=== PATIENT | male | born 1935 | race Caucasian/White ===

== ENCOUNTER 2016-05-14 13:02 | Inpatient (IN) | payer OTHER ==
--- NOTE | 2016-05-14 13:44 | PROVIDER DOCUMENTATION ---
HPI-Respiratory General - General Chief Complaint: Cold Symptoms Stated Complaint: cold Time Seen by Provider: 05/14/16 13:44 Source: patient, family, EMS Allergies/Adverse Reactions: Patient Allergies Allergy/AdvReac Type Severity Reaction Status Date / Time levofloxacin [From Levaquin] AdvReac Intermediate abdominal Verified 05/14/16 13 :11 cramps Home Medications: Home Medication List Medication Instructions Recorded Confirmed Last Taken Type Aspirin [Aspirin EC] 81 mg PO 08/19/12 01/25/13 1 Day Ago History Folic Acid 1 mg PO DAILY 08/19/12 01/25/13 1 Day Ago History Glyburide/Metformin HCl 1 tab PO BID 08/19/12 01/25/13 1 Day Ago History [Glucovance 2.5/500 mg Tablet] Metoprolol Succinate E.r. [Toprol 25 mg PO DAILY 08/19/12 01/25/13 1 Day Ago History Xl] Multivitamins/Minerals [Centrum 1 each PO DAILY 08/19/12 01/25/13 1 Day Ago History Silver] SIMVAstatin [Zocor] 10 mg PO QHS 08/19/12 01/25/13 1 Day Ago History Tamsulosin [Flomax] 0.4 mg PO DAILY 08/19/12 01/25/13 1 Day Ago History Omeprazole [Prilosec] 40 mg PO DAILY #30 capsule. 01/13/13 01/25/13 1 Day Ago Rx Oxycodone/APAP 5 mg/325 mg 1 each PO Q4H PRN PRN 01/25/13 01/25/13 1 Day Ago History [Percocet-5] Albuterol 2.5MG/Ipratrop 0.5MG 3 ml INH RTQ8H #0 neb 02/04/13 1 Week Ago Rx [Duoneb (A & A)] Infliximab [Remicade] 100 mg IV 05/14/16 1 Month Ago History Losartan/Hydrochlorothiazide 1 each PO DAILY 05/14/16 05/14/16 1 Day Ago History [Hyzaar 100/25 Tablet] Melatonin 3 mg PO QHS 05/14/16 05/14/16 1 Day Ago History Methotrexate 0.6 ml IM 05/14/16 1 Day Ago History Temazepam [Restoril] 30 mg PO DAILY 05/14/16 05/14/16 1 Day Ago History - History of Present Illness-Resp Nature of Presenting Problem: 81 yo M presents to the ER with complaint of cough, SOB, fever, and malaise x1 week, worsening last night. States he had pneumonia x1 month ago, was starting to get better but now getting worse. Denies CP or palpitations. Onset/Duration: reports: 1 week ago Cough Quality/Degree: reports: moderate Associated Symptoms: reports: cough, fever/chills, short of breath. denies: chest pain/soreness Review of Systems - Adult - REVIEW OF SYSTEMS - ADULT Constitutional: reports: chills, fever Eyes: reports: no symptoms reported Ears, Nose, Mouth & Throat: reports: no symptoms reported Cardiovascular: denies: chest pain, palpitations Respiratory: reports: cough, shortness of breath Gastrointestinal: denies: diarrhea, nausea, vomiting Genitourinary: reports: no symptoms reported Musculoskeletal: reports: no symptoms reported Integumentary: reports: no symptoms reported Neurological: reports: no symptoms reported Psychiatric: reports: no symptoms reported Endocrine: reports: no symptoms reported Hematologic/Lymphatic: reports: no symptoms reported Allergic/Immunologic: reports: no symptoms reported All Other Systems: Reviewed and Negative Past History - Adult - PAST MEDICAL HISTORY-ADULT Review of Records: reports: Nursing Assessment Review, Medications Reviewed Respiratory: reports: asthma Genitourinary: reports: prostate cancer Endocrine/Immune: reports: Diabetes - PRIOR SURGERIES/PROCEDURES Surgical/Procedure History: reports: cholecystectomy, tonsillectomy, hernia repair, joint replacement (knee) - IMMUNIZATION STATUS Childhood Immunizations: See Nurse Assessment Flu Vaccine: See Nurse Assessment Physical Exam-General - PHYSICAL EXAM-ADULT Initial Vital Signs Reviewed: Yes - CONSTITUTIONAL General Appearance: alert, no apparent distress - EYES Eyes: PERRL/EOMI, pink conjunctivae - HEAD, EARS, NOSE, MOUTH & THROAT HENMT: normocephalic/atraumatic, normal ENT inspection - NECK Neck: supple, normal inspection - RESPIRATORY Respiratory: lungs clear, no respiratory distress, no accessory muscle use - CARDIOVASCULAR Cardiovascular: no edema, no murmur, tachycardia - GASTROINTESTINAL (ABDOMEN) Abdominal Exam: normal bowel sounds, non tender, soft - MUSCULOSKELETAL Back Exam: no CVA tenderness, no vertebral tenderness Extremity: normal gait, normal inspection - SKIN Integumentary: normal color, warm/dry - NEUROLOGIC Neurologic: grossly normal, no motor/sensory deficits - PSYCHIATRIC Psych/Mental Status: normal mood/affect, normal thought content, normal thought process, oriented x 3 Progress - XRAY 1 XRAY Study: Chest Impression: Abnormal (RLL pneumonia) - CONSULTS/PCP/HOSPITALIST Notification #1 *Consult/PCP/Hospitalist*: Dr. Salians Time Discussed: 14:28 Consult Disposition: Admit Departure - Departure Time of Disposition Order: 14:41 DIAGNOSIS: Right lower lobe pneumonia Qualifiers: Pneumonia type: due to unspecified organism Qualified Code(s): J18.1 - Lobar pneumonia, unspecified organism Disposition: ADMITTED INPATIENT 09 Certified Medical Emergency: Emergent Condition: Stable Attestation - Scribe Verification/Attestation Scribe:: Diamante Valdez Acting as Scribe for:: Brady Adan Scribe documention review:: This chart was documented by a scribe and accurately reflects the service the provider performed and the decisions made by the provider.
[2016-05-14 14:13] LABS: HEMATOCRIT 34.7 % (42.0-52.0); HEMOGLOBIN 11.7 g/dL (14.0-18.0); IMM GRAN# 0.02 X1000 (0.0-0.04); IMM GRAN% 0.2 % (0.0-0.5); LYMPH# 0.49 X1000 (1.2-3.4); LYMPH% 4.4 % (20.5-51.1); MANUAL DIFF NEEDED? NO; MCH 31.5 PG (27-31); MCHC 33.7 g/dL (33-37); MCV 93.3 FL (81-99); MONO# 0.65 X1000 (0.11-0.59); MONO% 5.8 % (1.7-9.3); MPV 10.1 FL (7.4-10.4); NEUT% 89.6 % (42.2-75.2); PLT 145 X1000 (130-400); RBC 3.72 XMIL (4.7-6.1)
[2016-05-14 14:29] LABS: ALBUMIN 3.6 g/dL (3.5-5.0); CALCIUM 8.6 mg/dL (8.8-10.2); POTASSIUM 3.8 mmol/L (3.5-5.1); TOTAL BILIRUBIN 0.7 mg/dL (0.20-1.00); TOTAL PROTEIN 6.8 g/dL (6.3-8.3)
--- NOTE | 2016-05-14 14:30 | Diag Imaging Result Document ---
PROCEDURE NAME: CHEST-2 VIEWS - 05/14/2016 TWO VIEWS OF THE CHEST: FINDINGS: There is ill-defined alveolar opacity in the lateral inferior posterior right lower lobe. There is blunting of the costophrenic angles particularly the left. Compared to the previous study of 02/04/2013 despite the better inspiration, there is more alveolar opacity in the right lower lobe. IMPRESSION: Right lower lobe pneumonia.
[2016-05-14] MEDS: DUONEB (A & A) INH SCH ×2 (14:38→14:58)
[2016-05-14 14:44] LABS: BE 3.3 mmoll (-3.0-3.0); BLOOD TYPE ARTERIAL; DRAW SITE R BRACHIAL; METHB 1.2 % (0.0-1.5); O2(CT) 14.5 mL/dL (15.0-23.0); PCO2(98.6) 41 mmHg (35-45); PO2(98.6) 59 mmHg (60-100); SAMPLE BLOOD; SAO2 93.5 % (95.0-100.0); THB 11.5 g/dL (11.5-17.4); pH(98.6) 7.44 (7.35-7.45)
[2016-05-14] MEDS ORDERED: ROCEPHIN 500 MG in NS 50 ML IV SCH (14:45)
[2016-05-14 14:47] LABS: MODALITY ROOM AIR
[2016-05-14 14:48] LABS: ALLEN TEST NO
[2016-05-14] MEDS: ROCEPHIN 1 GM/NS 50 ML IV SCH (15:30)
[2016-05-14] MEDS: NS 1,000 ML IV SCH (15:47)
[2016-05-14] MEDS ORDERED: TYLENOL PO PRN (17:32)
[2016-05-14] MEDS ORDERED: ZOFRAN IV PRN (17:32)
[2016-05-14] MEDS: ZITHROMAX 500 MG/NS 250 ML IV SCH (18:24)
[2016-05-14] MEDS: DIABETA PO SCH (18:24)
[2016-05-14] MEDS: GLUCOPHAGE PO SCH (18:24)
[2016-05-14 18:36] LABS: URINE CULTURE PL NEEDED? NO; URINE SOURCE VOIDED
[2016-05-14 18:47] LABS: BILIRUBIN URINE NEGATIVE (NEGATIVE); BLOOD URINE NEGATIVE (NEGATIVE); COLOR AMBER; LEUKOCYTES URINE TRACE (NEGATIVE); NITRITE URINE NEGATIVE (NEGATIVE); PROTEIN URINE 1+(30 mg/dL) mg/dL (NEGATIVE); UROBILINOGEN URINE NORMAL
[2016-05-14 19:05] LABS: URINE EPITHELIAL CELLS <10 /HPF (<10); URINE RBC <10 /HPF (<10); URINE WBC <10 /HPF (<10)
[2016-05-14 19:06] LABS: CLARITY SLIGHTLY CLOUDY (CLEAR)
[2016-05-14] MEDS ORDERED: GLYBURIDE PO SCH (21:00)
[2016-05-14] MEDS ORDERED: METFORMIN HCL PO SCH (21:00)
[2016-05-14] MEDS: ZOCOR PO SCH (21:25)
[2016-05-14] MEDS: DUONEB (A & A) INH PRN (21:37)
[2016-05-15] MEDS: NS 1,000 ML IV SCH ×2 (03:00→04:10)
[2016-05-15] MEDS: DUONEB (A & A) INH PRN ×4 (03:25→21:14)
[2016-05-15] MEDS: PRILOSEC PO SCH (05:59)
[2016-05-15 06:01] LABS: HEMATOCRIT 31.7 % (42.0-52.0); HEMOGLOBIN 10.6 g/dL (14.0-18.0); MCH 31.6 PG (27-31); MCHC 33.4 g/dL (33-37); MCV 94.6 FL (81-99); MPV 10.4 FL (7.4-10.4); RBC 3.35 XMIL (4.7-6.1)
[2016-05-15 06:17] LABS: AGAP 14; ALBUMIN 3.2 g/dL (3.5-5.0); ALKALINE PHOSPHATASE 44 U/L (32-122); BUN 13 mg/dL (8-22); CHLORIDE 95 mmol/L (98-107); COSMO 270; GOT 11 U/L (10-34); GPT 9 U/L (10-44); POTASSIUM 3.4 mmol/L (3.5-5.1); SODIUM 133 mmol/L (136-145); TCO2 24 mmol/L (25-35); TOTAL PROTEIN 5.7 g/dL (6.3-8.3)
[2016-05-15] MEDS ORDERED: HYDROCHLOROTHIAZIDE PO SCH (09:00)
[2016-05-15] MEDS ORDERED: LOSARTAN PO SCH (09:00)
[2016-05-15] MEDS: TOPROL XL PO SCH (09:07)
[2016-05-15] MEDS: HYDROCHLOROTHIAZIDE PO SCH (09:07)
[2016-05-15] MEDS: DIABETA PO SCH ×2 (09:08→16:50)
[2016-05-15] MEDS: COZAAR PO SCH (09:08)
[2016-05-15] MEDS: FLOMAX PO SCH (09:08)
[2016-05-15] MEDS: GLUCOPHAGE PO SCH ×2 (09:08→16:50)
[2016-05-15] MEDS ORDERED: SALINE LOCK IV FLUID XX ONE (11:49)
--- NOTE | 2016-05-15 11:55 | PROGRESS NOTE ---
DATE: 05/15/2016 SUBJECTIVE: Patient states he thinks he is feeling a little bit better. He is having a little bit less cough, congestion this morning. Still has some shortness of breath. Has not been out of bed. Denies any fevers or chills. Denies any headaches, blurred vision, change in vision. OBJECTIVE: Vital signs: Temperature 98.5 degrees, pulse 90, respiratory 18, BP 146/58. General: Patient well developed, well nourished. Currently he is in no real respiratory distress. He is awake, alert. Neck: Supple. CV: Regular rate. Chest: Relatively clear. Better air movement than yesterday's exam. Abdomen: Soft. Extremities: Moves all extremities. Neurologic: No changes. LABS: Reviewed. CBC unchanged. CMP with improved sodium at 133. Improved glucose at 162. ASSESSMENT: 1. Right lower lobe pneumonia. 2. Leukocytosis. 3. Hyponatremia, improved. 4. Anemia of chronic disease. 5. Chronic obstructive pulmonary disease. 6. Diabetes. 7. Others. PLAN: We will continue patient on IV antibiotics today. Will continue to follow. Further orders as needed.
--- NOTE | 2016-05-15 15:02 | HISTORY AND PHYSICAL ---
CHIEF COMPLAINT: Cough. HISTORY OF PRESENT ILLNESS: The patent is an 81-year-old male, who presented to [facility] with cough, cold, and congestion. Notes he has had shortness of breath and fatigue for the past week that has been worsening over the past 2 days. He had pneumonia approximately a month ago. He has been off and on antibiotics, but has not seemed to help. PAST MEDICAL HISTORY: Asthma, chronic obstructive pulmonary disease, prostate cancer, diabetes. PAST SURGICAL HISTORY: History of cholecystectomy, tonsillectomy, hernia repair, joint replacement. FAMILY HISTORY: Noncontributory. SOCIAL HISTORY: Patient lives at home. Does not smoke or drink. MEDICATIONS: Melatonin 3 mg b.i.d., BRONWYN nebs q. 8 p.r.n., Remicade, methotrexate, Centrum Silver, Flomax 0.4, Toprol 50, aspirin 81, Zocor 10, Percocet p.r.n., Prilosec 20, Glucovance 2.5/500 one twice a day, Restoril 30, and Hyzaar 100/25. REVIEW OF SYSTEMS: Positive cough and congestion. Positive low-grade fevers and chills. States he has had a nonproductive cough. Denies any chest pain or palpitations. Denies any dysuria, frequency, urgency. Denies melena, constipation, hematochezia. Denies hemoptysis and hematemesis. OBJECTIVE: Vital signs: Reviewed. Temperature 98 degrees, pulse 110, respiratory rate 20, blood pressure 116/78, sat 90% on room air. General: Patient is an elderly male who is currently in mild respiratory distress. He is pleasant to talk with. Speech is regular. Memory appears intact. HEENT: Normocephalic. Neck: Supple. Cardiovascular: Regular rate. Chest: Relatively clear throughout. Positive rhonchi and faint crackles in the right lower. DIAGNOSTIC DATA: WBC is 11, hemoglobin and hematocrit 11 and 30. ABG with pH 7.4, pO2 of 59,000, oxyhemoglobin 89, carboxyhemoglobin 2.9. Sodium 125, glucose 264. ASSESSMENT: 1. Right lower lobe pneumonia. 2. Acute hypoxemia in a patient who is not normally on oxygen, likely secondary to his pneumonia. 3. Mild anemia of chronic disease. Hemoglobin and hematocrit 11 and 34. 4. Mild leukocytosis. 5. Fever. 6. Hyponatremia. 7. Known history of prostate cancer. 8. Diabetes. PLAN: We will admit patient to the hospital. IV fluids, antibiotics, breathing treatments, oxygen. Continue his home medications. Further orders as needed.
[2016-05-15] MEDS: ROCEPHIN 1 GM/NS 50 ML IV SCH (15:18)
[2016-05-15] MEDS: ZITHROMAX 500 MG/NS 250 ML IV SCH (15:52)
[2016-05-15] MEDS ORDERED: ROBITUSSIN PO ONE ×2 (20:37→21:15)
[2016-05-15] MEDS ORDERED: ROBITUSSIN ONE (20:45)
[2016-05-15] MEDS: ZOCOR PO SCH (20:49)
[2016-05-16] MEDS: DUONEB (A & A) INH PRN ×2 (03:19→08:49)
[2016-05-16] MEDS: PRILOSEC PO SCH ×2 (05:27→06:06)
[2016-05-16] MEDS ORDERED: ZITHROMAX 500 MG/NS 250 ML IV SCH (07:48)
--- NOTE | 2016-05-16 08:20 | Diag Imaging Result Document ---
PROCEDURE NAME: CHEST-2 VIEWS - 05/16/2016 FRONTAL AND LATERAL CHEST, TWO VIEWS: COMPARISON: 05/14/2016. FINDINGS: No change in the right-sided catheter. No pneumothorax. The heart is not enlarged. There are infiltrates in the lateral right lung and in the left base. The infiltrates in the left base are more pronounced than on the prior exam. The vessels are not distended. Questionable trace pleural fluid. IMPRESSION: Mild worsening in the left basilar infiltrates with no improvement on the right.
[2016-05-16] MEDS: COZAAR PO SCH (08:23)
[2016-05-16] MEDS: GLUCOPHAGE PO SCH ×2 (08:24→17:18)
[2016-05-16] MEDS: TOPROL XL PO SCH (08:24)
[2016-05-16] MEDS: FLOMAX PO SCH (08:24)
[2016-05-16] MEDS: HYDROCHLOROTHIAZIDE PO SCH (08:24)
[2016-05-16] MEDS: DIABETA PO SCH ×2 (08:24→17:19)
[2016-05-16] MEDS: OMNICEF PO SCH ×2 (10:20→19:31)
[2016-05-16 16:37] VITALS: BP 140/85
[2016-05-16] MEDS ORDERED: ZITHROMAX PO SCH (17:00)
[2016-05-16] MEDS: ZOCOR PO SCH (19:31)
--- NOTE | 2016-05-17 05:24 | DISCHARGE SUMMARY ---
ADMISSION DATE: 05/14/2016 DISCHARGE DATE: 05/16/2016 ADMISSION DIAGNOSES: 1. Right lower lobe pneumonia. 2. Acute hypoxemia. 3. Mild anemia of chronic disease. 4. Mild leukocytosis. 5. Fever. 6. Hyponatremia. 7. Known history of prostate cancer. 8. Diabetes. DISCHARGE DIAGNOSES: 1. Right lower lobe pneumonia, improved. 2. Acute hypoxemia, resolved. 3. Mild anemia of chronic disease. 4. Mild leukocytosis, improved. 5. Fever, resolved. 6. Hyponatremia, improved. 7. Known history of prostate cancer. 8. Diabetes. SUMMARY OF FINDINGS: This is an 81-year-old male who presented to [facility] with complaints of cough, cold, congestion, shortness of breath and fatigue for a week that had worsened over the past 2 days prior to arrival. States that he had pneumonia approximately a month ago and had been on an off of antibiotics but it had not seen that helped. Workup showed a white blood cell count of 11.16. His sodium was 125. Chest x-ray on 05/14/2016 showed a right lower lobe pneumonia. He has improved clinically and so we checked a room O2 saturation today to qualify for home O2 if necessary, but he was at 92%, so it is felt that he can safely be discharged home today. DISCHARGE MEDICATIONS: Will include a prescription for Omnicef 300 mg p.o. b.i.d. for 7 days, no refills, and azithromycin 500 mg p.o. with supper #5, no refills. He will continue his home medications of metoprolol 50 mg p.o. daily, Zocor 10 mg p.o. at bedtime, Flomax 0.4 mg p.o. daily, BRONWYN nebs q.8 hours, aspirin 81 mg p.o. daily, folic acid 1 mg p.o. daily, Glucovance 2.5/500 p.o. b.i.d., Remicade injection as directed, Hyzaar 100/25 p.o. daily, melatonin 3 mg p.o. b.i.d., methotrexate 0.6 mL IM as directed, Centrum Silver one p.o. daily, Prilosec 20 mg p.o. daily, Percocet 5 one p.o. q.4 hours p.r.n., and Restoril 30 mg p.o. daily. FOLLOWUP: He will follow up with his primary care physician in 1-2 weeks. TIME SPENT: Thirty-five minute discharge. Dictated by TOSHA Edward for Ortega Salinas MD
== END 2016-05-16 19:34 | disposition home or self-care (01) | DRG 190 ==
LOC: P.ED 13:02 → P.MEDSURG 15:31 → OBSVTOIN 15:31
PROVIDERS: ATTEND Family Medicine
DX: J44.0 Chronic obstructive pulmonary disease with (acute) lower respiratory infection (principal); J18.9 Pneumonia, unspecified organism; E11.9 Type 2 diabetes mellitus without complications; D63.8 Anemia in other chronic diseases classified elsewhere; E87.1 Hypo-osmolality and hyponatremia; J45.909 Unspecified asthma, uncomplicated; R09.02 Hypoxemia; Z96.659 Presence of unspecified artificial knee joint; Z85.46 Personal history of malignant neoplasm of prostate; Z79.899 Other long term (current) drug therapy; Z79.82 Long term (current) use of aspirin
CPT/HCPCS: 71020; 80053; 81001; 82805; 82948; 83605; 83880; 85025; 85027; 87040; 94640; 94761; 96365; J0456; J0696; J1642; J7030